=== PATIENT | male | born 1990 | race Caucasian/White ===

== ENCOUNTER 2018-07-14 00:51 | Emergency (ER) | payer SELFPAY ==
[~2018-07-14] VITALS: Ht 170.2 cm; Wt 88.5 kg
[2018-07-14 00:55] VITALS: Ht 170.2 cm; Wt 88.5 kg
[2018-07-14 03:05] VITALS: BP 139/76
== END 2018-07-14 03:05 | disposition home or self-care (01) ==
LOC: ED 00:51
DX: S80.212A Abrasion, left knee, initial encounter (principal); S40.212A Abrasion of left shoulder, initial encounter; S40.012A Contusion of left shoulder, initial encounter; V49.9XXA Car occupant (driver) (passenger) injured in unspecified traffic accident, initial encounter; Y93.89 Activity, other specified; Y92.410 Unspecified street and highway as the place of occurrence of the external cause; Y99.8 Other external cause status
CPT/HCPCS: 90715; J2270; J2405